=== PATIENT | female | born 1985 | race African-American/Black ===

== ENCOUNTER → 2017-12-09 09:17 | Outpatient (CLI) | payer MEDICAID, SELFPAY ==
[2017-12-09 10:29] LABS: Absolute Lymphocyte Count 1.26 X10^3/ul (0.83-4.51); Basophil# 0.02 X10^3/uL; Basophil% 0.3 % (0-1); Eosinophil# 0.01 X10^3/uL; Eosinophils% 0.1 % (0-5); Hemoglobin 12.9 g/dl (12.0-15.0); Lymphocyte # 1.26 X10^3/ul (4.0); Lymphocyte % 17.3 % (19-41); Mean Corp Hgb Conc 33.1 g/gl (32-36); Mean Corpuscular Volume 84.8 fL (81-99); Mean Platelet Vol. 11.8 fl (6.2-12.0); Monocyte# 0.96 X10^3/uL; Monocyte% 13.2 % (0-10); Neutrophil # 5.02 X10^3/uL (2.7-7.7); Neutrophil % 68.8 % (47-70); Platelet Count 262 K/mm3 (150-450); RBC Distribution Width CV 14.5 % (11.6-14.6); RBC Distribution Width SD 44.2 fl (35.1-43.9); White Blood Count 7.3 K/mm3 (4.4-11.0)
[2017-12-09 10:43] LABS: POSITIVE COUNT NO; POSITIVE DIFFERENTIAL NO; POSITIVE MORPHOLOGY NO
[2017-12-09 12:15] LABS: HIV - WCH Non-Reactive (Nonreactive); Rubella IgG 135.8 IU/mL
[2017-12-09 19:26] LABS: Chlamydia Trachomatis by PCR Negative (Negative); Neisserai gonorrhoeae by PCR Negative (Negative); Probe Check PASS; Sample Adequacy Control PASS; Specimen Processing Control PASS
[2017-12-11 03:08] LABS: HCV Quant. RNA PCR HCV Not Detected IU/mL (.)
[2017-12-11 11:45] LABS: HEPATITIS B SURFACE AG Negative (Negative); HSV 1 IgG < 0.91 index (0.00-0.90); HSV 2 IgG < 0.91 index (0.00-0.90); Hep C Antibodies <0.1 s/co ratio (0.0-0.9)
[2017-12-15 10:08] LABS: HPV APTIMA, High Risk Negative (Negative)
[2017-12-16 02:33] LABS: Rapid Plasmin Reagin (RPR) NONREACTIVE (NONREACTIVE)
== END ==
PROVIDERS: Visit Provider Obstetrics & Gynecology
DX: Z12.4 Encounter for screening for malignant neoplasm of cervix (principal); O09.90 Supervision of high risk pregnancy, unspecified, unspecified trimester
CPT/HCPCS: 80307; 85025; 86592; 86695; 86696; 86703; 86762; 86803; 86850; 86900; 87086; 87088; 87340; 87491; 87522; 87591; 88175; G0145

== ENCOUNTER 2017-12-20 07:02 | Emergency (ER) | payer MEDICAID, SELFPAY ==
[2017-12-20 07:03] VITALS: BP 148/89; PULSE 111; RESP 22; TEMP 36.3; O2SAT 100; BMI 26.2
--- NOTE | 2017-12-20 07:29 | ED.VISSUMM ---
- ER Visit Summary Date of Service: 12/20/17 Chief Complaint: Vaginal bleeding History of Present Illness: The patient is a 32 F who has had vaginal bleeding for the last 3 days. Is been intermittent. She states it is about the same quantity as spotting. She is currently 10 weeks gestation. She has seen her OB and has had an ultrasound. She was told that she had uterine fibroids. She admits to some slight cramping but denies any significant pain. She is . Physical Examination: Vital signs reviewed. HEENT exam unremarkable. Heart is regular rate and rhythm without murmurs. Lungs are clear to auscultation. Abdomen is soft and nontender. exam is deferred extremities reveal no edema. Skin exam normal. Neurologic exam normal. Test Results: [] Emergency Department Course and Treatment: I did perform a bedside ultrasound reveals a single IUP with heart rate at about 140. movement noted. HCG is over 83,000. Urinalysis reveals no infection. Patient was reassured. She feels better after the ultrasound. She will be discharged to follow-up with her OB on Tuesday Treatment Plan: [] Disposition: Discharge Impression: Threatened This note was generated with [employer] dictation software. It may contain incorrect words, spelling, and punctuation that were not noted in review of the chart prior to signing ED Disposition - Plan for ED Patient: Chief Complaint: Vag Bld, Preg Referrals: Jessica Muse MD [STAFF PHYSICIAN] -
[2017-12-20 07:56] LABS: Mucous, Urine 0 SEEN /hpf (<or=2+); Red Blood Cells-Urine 0 SEEN /hpf (0-5)
[2017-12-20 08:00] LABS: Color, Urine Yellow (Yellow); Glucose, Dipstick Normal (Normal); Ketone-Dipstick Negative (Negative); Leukocyte Esterase-Dipstick 25 /ul (Negative); Nitrite-Dipstick Negative (Negative); Occult Blood-Urine Negative /ul (Negative); Protein-Dipstick 30 mg/dl (Negative); Urine Bilirubin Dipstick Negative (Negative); Urine Clarity Sl. Cloudy (Clear); Urine Urobilinogen Normal (Normal)
[2017-12-20 08:12] LABS: Bacteria 1+ /hpf (None Seen); Squamous Epithelial Cells - UA 0-5 SEEN /hpf (5-10); White Blood Cells 0-5 SEEN /hpf (0-5)
--- NOTE | 2017-12-20 08:37 | ED.DEP ---
ED Disposition - Plan for ED Patient: Disposition: Home or Assisted Living Chief Complaint: Vag Bld, Preg Instructions: ED Miscarriage Poss Referrals: Jessica Muse MD [STAFF PHYSICIAN] -
[2017-12-20 09:18] VITALS: BP 109/58; PULSE 82; RESP 16; O2SAT 100
== END 2017-12-20 09:19 | disposition home or self-care (01) ==
PROVIDERS: Emergency Provider Emergency Medicine
DX: O20.0 Threatened abortion (principal); O34.11 Maternal care for benign tumor of corpus uteri, first trimester; O99.331 Smoking (tobacco) complicating pregnancy, first trimester; Z3A.10 10 weeks gestation of pregnancy
CPT/HCPCS: 36415; 81001; 84702; 99282

== ENCOUNTER → 2017-12-21 12:39 | Outpatient (CLI) | payer MEDICAID, SELFPAY | PROVIDERS: Visit Provider Nurse Practitioner Women's Health | DX: N89.8 Other specified noninflammatory disorders of vagina (principal) | CPT/HCPCS: 87070; 87205 ==

== ENCOUNTER → 2017-12-22 14:48 | Outpatient (CLI) | payer MEDICAID, SELFPAY ==
--- NOTE | 2017-12-22 14:55 | US_ITS ---
STUDY: FIRST TRIMESTER OBSTETRICAL ULTRASOUND REASON FOR EXAM: Female, 32 years old. . Fibroids. LMP: 10/07/2017 TECHNIQUE: Transabdominal PRIOR ULTRASOUND: None. FINDINGS: There is visualization of a single gestational sac in a normal intrauterine position. There is a visualized yolk sac. There is visualization of a live embryo. The crown-rump length (CRL) measures 4.0 cm, indicating an estimated gestational age (EGA) of 11 weeks, 0 days. There is demonstrated cardiac activity with a heart rate of 158 bpm. There is a 1.8 x 1.7 x 1.3 cm subchorionic hemorrhage adjacent to the gestational sac. The uterus measures 15.2 x 11.3 x 7.3 cm. There is an 8.8 x 6.1 x 6.1 cm fibroid in the fundus of the uterus. There is a 5.4 x 5.1 x 5.0 cm fibroid in the right side of the body of the uterus. There is a 7.2 x 7.0 x 5.6 cm fibroid posteriorly in the uterus. There is a 3.7 x 3.6 x 3.1 cm fibroid on the left body of the uterus. The cervix is closed. The right ovary is not visualized. The left ovary measures 2.3 x 1.7 x 1.5 cm.. There is no left ovarian cyst. There is no visualized left adnexal mass or complex lesion. There is no fluid in the cul de sac. US/Init OB < 14Wks US IMPRESSION: Single live intrauterine gestation at approximately 11 weeks and 0 days. 1.8 x 1.7 x 1.3 cm subchorionic hemorrhage. Fibroid uterus. Electronically Signed: Kory Quick, at 16:48 EDT Tel , Service support ,
== END ==
PROVIDERS: Visit Provider Obstetrics & Gynecology
DX: O09.90 Supervision of high risk pregnancy, unspecified, unspecified trimester (principal); O34.10 Maternal care for benign tumor of corpus uteri, unspecified trimester; D25.9 Leiomyoma of uterus, unspecified
CPT/HCPCS: 76801; 76816

== ENCOUNTER → 2018-02-06 13:43 | Outpatient (CLI) | payer MEDICAID, SELFPAY | DX: O34.10 Maternal care for benign tumor of corpus uteri, unspecified trimester (principal); D25.9 Leiomyoma of uterus, unspecified | CPT/HCPCS: 36415 ==

== ENCOUNTER → 2018-02-17 07:56 | Outpatient (CLI) | payer MEDICAID, SELFPAY ==
--- NOTE | 2018-02-17 07:59 | US_ITS ---
STUDY: SECOND AND THIRD TRIMESTER OBSTETRICAL ULTRASOUND REASON FOR EXAM: Female, 32 years old. Routine survey. LMP: October 07, 2017. TECHNIQUE: Transabdominal and Transvaginal PRIOR ULTRASOUND: Comparison is made with prior study dated January 18, 2018. FINDINGS: There is a single intrauterine fetus. The fetus is in a breech presentation. There is demonstrated cardiac activity with a heart rate of 150 bpm. There is a normal amniotic fluid volume. The largest amniotic fluid pocket measures 4.1 cm x 2.1 cm. The amniotic fluid index (DEYANIRA) is normal. The placenta is posterior in location and is not low lying. There are Grade 0 placental changes. The cervix measures 3.7 cm in length. The adnexal regions are not visualized. 4 uterine fibroids are seen. The largest measures 7.7 cm x 7.4 cm x 8.2 cm. This lies in the fundal portion of the uterus. BIOMETRY: BPD: 4.10 cm: 8 weeks, 4 days HC: 15.49 cm: 18 weeks, 4 days AC: 13.79 cm: 19 weeks, 2 days FL: 2.94 cm: 19 weeks, 1 days CI: 76% FL/BPD: 72% FL/HC: FL/AC: 21% HC/AC: 1.12 age by current US: 19 weeks, 0 days. BRENT by current US: July 14, 2018. Estimated weight: 271 grams, +/- 40 grams, 48 %. age by prior US: 18 weeks, 6 days. BRENT by prior US: July 15, 2018. Age by LMP: 19 weeks, 0 days. BRENT by LMP: July 14, 2018. ANATOMY: Gender: Female Cranium: Normal lateral ventricles. Normal choroid plexus. Normal cerebellum. Normal cisterna magna. Normal face, nose and lips. Chest: Normal 4-chamber heart. Abdomen/Pelvis: Normal diaphragm. Normal stomach. Normal abdominal wall. Normal cord insertion. Normal 3 vessel cord. Normal kidneys. Normal bladder. Spine: Normal cervical spine. Normal thoracic spine. Normal lumbar spine. Normal sacrum. Extremities: Normal bilateral upper extremities. Normal bilateral lower extremities. IMPRESSION: Single live uterine gestation with a mean gestational age of 18 weeks and 6 days. The measurements obtained today fall within normal expected range. Enlarged fibroid uterus as described. Electronically Signed: Lauri Ty MD at 13:25 EDT Tel [phone], Service support , US/OB Anatomy Scan
== END ==
PROVIDERS: Visit Provider Obstetrics & Gynecology
DX: O09.90 Supervision of high risk pregnancy, unspecified, unspecified trimester (principal); O32.1XX0 Maternal care for breech presentation, not applicable or unspecified; Z3A.18 18 weeks gestation of pregnancy
CPT/HCPCS: 76805

== ENCOUNTER → 2018-04-11 09:12 | Outpatient (CLI) | payer MEDICAID, SELFPAY ==
[2018-04-11 13:00] LABS: Absolute Lymphocyte Count 1.52 X10^3/ul (0.83-4.51); Absolute Neutrophil Count 6.5 X10^3/uL (2.0-7.7); Basophil# 0.02 X10^3/uL; Basophil% 0.2 % (0-1); Eosinophil# 0.05 X10^3/uL; Eosinophils% 0.5 % (0-5); Hematocrit 33.1 % (37-47); Hemoglobin 10.6 g/dl (12.0-15.0); Lymphocyte # 1.52 X10^3/ul (4.0); Lymphocyte % 16.4 % (19-41); Mean Corpuscular Volume 87.6 fL (81-99); Mean Platelet Vol. 12.5 fl (6.2-12.0); Monocyte# 1.08 X10^3/uL; Monocyte% 11.7 % (0-10); Neutrophil # 6.53 X10^3/uL (2.7-7.7); Neutrophil % 70.4 % (47-70); Platelet Count 226 K/mm3 (150-450); RBC Distribution Width CV 13.9 % (11.6-14.6); RBC Distribution Width SD 43.4 fl (35.1-43.9); Red Blood Count 3.78 M/mm3 (4.2-5.4); White Blood Count 9.3 K/mm3 (4.4-11.0)
[2018-04-11 13:03] LABS: POSITIVE COUNT NO; POSITIVE DIFFERENTIAL NO; POSITIVE MORPHOLOGY NO
[2018-04-11 13:27] LABS: Glucose Challenge Gest 1H 50g 85 mg/dL (70-140)
== END ==
PROVIDERS: Nurse Practitioner Women's Health; Visit Provider Obstetrics & Gynecology
DX: O09.90 Supervision of high risk pregnancy, unspecified, unspecified trimester (principal); Z3A.00 Weeks of gestation of pregnancy not specified
CPT/HCPCS: 36415; 82950; 85025

== ENCOUNTER → 2018-05-02 07:58 | Outpatient (CLI) | payer MEDICAID, SELFPAY ==
--- NOTE | 2018-05-02 08:00 | US_ITS ---
STUDY: SECOND AND THIRD TRIMESTER OBSTETRICAL ULTRASOUND - LIMITED REASON FOR EXAM: Female, 32 years old. Routine survey. LMP: October 07, 2017. PRIOR ULTRASOUND: Comparison is made with prior study dated February 17, 2018. TECHNIQUE: Transabdominal ultrasound evaluation was performed. FINDINGS: There is a single intrauterine fetus. The fetus is in a breech presentation. There is demonstrated cardiac activity with a heart rate of 149 bpm. There is a normal amniotic fluid volume. The largest amniotic fluid pocket measures 4.2 cm x 2.2 cm. The amniotic fluid index (DEYANIRA) is 11.36 cm. The placenta is posterior in location and is not low lying. There are Grade 2 placental changes. The cervix measures 3.5 cm in length. BIOMETRY: BPD: 7.44 cm: 29 weeks, 6 days HC: 27.61 cm: 30 weeks, 2 days AC: 25.35 cm: 29 weeks, 4 days FL: 5.73 cm: 30 weeks, 1 days Age by LMP: 29 weeks, 4 days. BRENT by LMP: July 14, 2018. age by prior US: 29 weeks, 4 days. BRENT by prior US: July 14, 2018. age by current US: 30 weeks, 0 days. BRENT by current US: July 11, 2018. Estimated weight: 1454 grams, +/- 212 grams, 44 percentile. Gender: Female Once again, for uterine fibroids are seen. The largest measures 7 cm x 6 cm 6.1 cm. US/OB Limited With Biometrics IMPRESSION: Single live uterine gestation with a mean gestational age of 29 weeks and 4 days. The measurements obtained today fall within normal expected range. Electronically Signed: Lauri Ty MD at 14:12 EDT Tel [phone], Service support ,
== END ==
PROVIDERS: Visit Provider Nurse Practitioner Women's Health
DX: O34.10 Maternal care for benign tumor of corpus uteri, unspecified trimester (principal); D25.9 Leiomyoma of uterus, unspecified; R10.2 Pelvic and perineal pain
CPT/HCPCS: 76816

== ENCOUNTER → 2018-05-22 12:29 | Outpatient (CLI) | payer MEDICAID, SELFPAY ==
--- NOTE | 2018-05-22 12:30 | US_ITS ---
STUDY: SECOND AND THIRD TRIMESTER OBSTETRICAL ULTRASOUND - LIMITED REASON FOR EXAM: Female, 32 years old. Routine survey. LMP: October 07, 2017. PRIOR ULTRASOUND: Comparison is made with prior study dated May 02, 2018 and February 17, 2018. TECHNIQUE: Transabdominal ultrasound evaluation was performed. FINDINGS: There is a single intrauterine fetus. The fetus is in a cephalic presentation. There is demonstrated cardiac activity with a heart rate of 124 bpm. There is a normal amniotic fluid volume. The largest amniotic fluid pocket measures 5.1 cm x 6.2 cm. The amniotic fluid index (DEYANIRA) is 11.11 cm. The placenta is fundal in location. There are Grade 2 placental changes. The cervix measures 4.3 cm in length. BIOMETRY: BPD: 8.19 cm: 33 weeks, 0 days HC: 30.28 cm: 33 weeks, 5 days AC: 28.46 cm: 32 weeks, 4 days FL: 6.35 cm: 32 weeks, 6 days Age by LMP: 32 weeks, 3 days. BRENT by LMP: July 14, 2018. age by prior US: 32 weeks, 6 days. BRENT by prior US: July 11, 2018. age by current US: 33 weeks, 1 days. BRENT by current US: July 09, 2018. Estimated weight: 2040 grams, +/- 298 grams, 50 percentile. Gender: Female Once again, 3 uterine fibroids are seen. The largest measures 7.6 cm x 5.2 cm x 7.2 cm. US/OB Limited With Biometrics IMPRESSION: Single live intrauterine gestation with mean gestational age of 32 weeks and 6 days. The measurements obtained today following the normal expected range. Uterine fibroids. Electronically Signed: Lauri Ty MD at 9:13 EDT Tel [phone], Service support ,
== END ==
PROVIDERS: Visit Provider Nurse Practitioner Women's Health
DX: O09.90 Supervision of high risk pregnancy, unspecified, unspecified trimester (principal); O34.10 Maternal care for benign tumor of corpus uteri, unspecified trimester; D25.9 Leiomyoma of uterus, unspecified
CPT/HCPCS: 76816

== ENCOUNTER → 2018-06-19 16:49 | Outpatient (CLI) | payer MEDICAID, SELFPAY ==
[2018-06-19 19:32] LABS: Group B Strep DNA By PCR Negative (Negative); Internal Control PASS; Probe Check PASS; Specimen Processing Control PASS
== END ==
PROVIDERS: Referring Provider Nurse Practitioner Women's Health; Visit Provider Nurse Practitioner Women's Health
DX: O09.90 Supervision of high risk pregnancy, unspecified, unspecified trimester (principal); Z3A.00 Weeks of gestation of pregnancy not specified
CPT/HCPCS: 87081; 87653

== ENCOUNTER → 2018-06-20 08:29 | Outpatient (CLI) | payer MEDICAID, SELFPAY ==
--- NOTE | 2018-06-20 08:31 | US_ITS ---
STUDY: SECOND AND THIRD TRIMESTER OBSTETRICAL ULTRASOUND - LIMITED REASON FOR EXAM: Female, 33 years old. Routine survey. LMP: October 07, 2017. PRIOR ULTRASOUND: Comparison is made with prior study dated May 22, 2018. TECHNIQUE: Transabdominal TECHNICAL QUALITY: Adequate. FINDINGS: There is a single intrauterine fetus. The fetus is in a cephalic presentation. There is demonstrated cardiac activity with a heart rate of 144 bpm. There is a normal amniotic fluid volume. The largest amniotic fluid pocket measures 4.0 cm x 3.8 cm. The amniotic fluid index (DEYANIRA) is 9.28 cm. The placenta is fundal in location. There are Grade 3 placental changes. The cervix measures 3.3 cm in length. BIOMETRY: BPD: 8.84 cm: 35 weeks, 6 days HC: 32.25 cm: 36 weeks, 4 days AC: 33.22 cm: 37 weeks, 1 days FL: 7.17 cm: 36 weeks, 6 days Age by LMP: 36 weeks, 4 days. BRENT by LMP: July 14, 2018. age by prior US: 37 weeks, 2 days. BRENT by prior US: July 09, 2018. age by current US: 36 weeks, 5 days. BRENT by current US: July 13, 2018. Estimated weight: 3033 grams, +/- 443 grams, 60 percentile. Gender: Female Once again, stable appearance of the uterine fibroids. US/OB Limited With Biometrics IMPRESSION: Single live intrauterine gestation with mean gestational age of 37 weeks and 2 days. Measurements obtained today fall within the normal expected range. Electronically Signed: Lauri Ty MD at 14:58 EDT Tel [phone], Service support ,
== END ==
PROVIDERS: Visit Provider Nurse Practitioner Women's Health
DX: O09.90 Supervision of high risk pregnancy, unspecified, unspecified trimester (principal); Z3A.00 Weeks of gestation of pregnancy not specified
CPT/HCPCS: 76816

== ENCOUNTER 2018-06-25 08:00 | Inpatient (IN) | payer MEDICAID, SELFPAY ==
[2018-06-25 08:24] VITALS: BMI 29.1
[2018-06-25] MEDS: Lactated Ringers 1,000 ML 50 ML IV ×3 (08:50→13:38)
[2018-06-25 09:05] LABS: ROM Internal Control Test YES-OK TO RESULT pt. (Internal QC); ROM Patient Test Negative (Negative)
[2018-06-25 09:28] LABS: Hematocrit 37.1 % (37-47); Mean Corp Hgb Conc 32.3 g/gl (32-36); Mean Corpuscular Hgb 27.8 pg (27.0-32.0); Mean Corpuscular Volume 86.1 fL (81-99); Mean Platelet Vol. 13.5 fl (6.2-12.0); Platelet Count 136 K/mm3 (150-450); RBC Distribution Width CV 14.8 % (11.6-14.6); RBC Distribution Width SD 45.1 fl (35.1-43.9); Red Blood Count 4.31 M/mm3 (4.2-5.4); White Blood Count 5.9 K/mm3 (4.4-11.0)
[2018-06-25 09:31] LABS: Scan Indicated on CBC? Y/N NO
[2018-06-25] MEDS: fentaNYL-bupivacaine (epidural) 100 ML BAG EPIDURAL (11:21)
[2018-06-25] MEDS: Oxytocin 30 units/NS 500 ml 30 UNITS/500 ML IV.SOLN IV (12:59)
--- NOTE | 2018-06-25 13:41 | HP.PCM_ITS ---
- Problem List (1) Active labor at term Status: Acute (2) Anemia affecting Status: Acute Qualifiers: (3) Pain in female pelvis Status: Acute (4) Status: Acute Qualifiers: Comment: History : 2 Elective abortions: 1 Hx Para: Spontaneous abortions: Hx # Term Pregnancies: Ectopic pregnancies: Hx # Pregnancies: Multiple births: : # of living children: (5) Abnormal ultrasonic finding on screening of mother, antepartum Status: Acute Comment: Q4wk growth US after 32 weeks (6) screening encounter Status: Acute Comment: NT done 01/10/18- normal (7) Depression affecting , antepartum Status: Acute Comment: celexa 20 mg, counseling encouraged;improved with rx (8) Uterine fibroid in Status: Acute Comment: Serial growth US. 8.8 x 6.1 x 6.1 cm fibroid in the fundus of the uterus. There is a 5.4 x 5.1 x 5.0 cm fibroid in the right side of the body of the uterus. There is a 7.2 x 7.0 x 5.6 cm fibroid posteriorly in the uterus. There is a 3.7 x 3.6 x 3.1 cm fibroid present also. (9) Tobacco use affecting in first trimester, antepartum Status: Acute Comment: No longer smoking, using Nicorette gum (10) Supervision of high risk , antepartum Status: Acute Comment: PRR BRENT 07/14/18 FOB not involved Girl:Bety History Date of Admission: 06/25/18 Final BRENT: 07/14/18 Gestational age: 37 Weeks and 2 Days History of this : This is a 33 year-old, at 37 weeks gestational age PRESENTS IAL MADE CHANGE TO 6 CM. SHE HAS had a complicated by uterine fibroids but has done well. she dneies any vb or lof admits good fm. contractions started late last night. Medical History: Medical History (Last Reviewed 06/19/18 @ 14:43 by Mei Henderson) Uterine fibroid D25.9 Allergies No Known Allergies Allergy (Verified 06/19/18 14:43) Home Medications: Home Medications citalopram 20 mg tablet 20 mg PO QDAY #30 tab 12/12/17 vitamin,calcium,iifodelz-kjhg-splwd acid tablet 1 tab PO QDAY #30 tab 02/07/18 cyclobenzaprine 5 mg tablet 5 mg PO TID PRN #60 tab 06/13/18 Smoking Status: Light Smoker (<10/day) Alcohol: None Number of Fetus(es): 1 Heart Tracin moderate vairbaility reactive no decels cat I tracing TOCO Analysis: q 4-5 History Past Pregnancies: Past PregnanciesPregancy History 2 Elective abortions 1 Hx Para Spontaneous abortions Hx # Term Pregnancies Ectopic pregnancies Hx # Pregnancies Multiple births # of living children Past Pregnancies Del. Date Name GA/Weeks Outcome Route Bth Weight Gen Labor Lgth Anesthesia Del Locatn Provider FOB Unknown elective Labs: Mom's Labs & Results 06/25/18 06/25/18 06/25/18 08:15 09:05 09:05 WBC 5.9 RBC 4.31 Hgb 12.0 Hct 37.1 MCV 86.1 MCH 27.8 MCHC 32.3 RDW 14.8 H RDW Differential 45.1 H Plt Count 136 L MPV 13.5 H Vag Amniotic Fld Detect Negative Blood Type O POSITIVE Antibody Screen NEGATIVE Course Did the patient receive Yes care? Labs Blood Type: O RH: POSITIVE RPR/VDRL/Syphilis Nonreactive Rubella status Immune HbSAg Negative Date Done: 12/09/17 Chlamydia Negative Gonorrhea Negative HIV/AIDS Non-Reactive Group B Strep: Negative Current Obstetrical History Gestational Diabetes No Incompetent Cervix No Infertility No IUGR No Macrosomia No Hypertension/Pre-eclampsia No Placenta Previa/Abruption No PTL/PROM No Uterine anomaly Yes: fibroids Oligohydramnios No Polyhydramnios No Multiple gestation No Past Medical History Asthma No Diabetes No Hypertension No Heart disease No Mitral valve prolapse No Neurologic/Seizure disorder/ No Migraines Kidney disease No Liver disease No Varicosities No Clotting disorders/Hx of DVT No Thyroid Dysfunction No Other medical diseases No Psychiatric disorders Yes: depression, anxiety Major trauma No Abnormal PAP smear No Sleep apnea No Mammogram in the last 2 years No Social History Marital Status: SINGLE Alleged father Shayan Valdez Hx Smoking Yes Smoking Status Light Smoker (<10/day) Have you had any previous no inpatient or outpatient treatment Expected Delivery Method: Spontaneous Vaginal Describe any other labor & delivery plans:: Expected Delivery Route/Plan. . Specific Issue/Plans. flu vaccine: given. tdap vaccine: given. rhogam: NA. LARC form signed: declines. labor support person: patients mom. pain management: epidural. cut cord/dad catch: []. : yes. PP control planned: mirena IUD. special requests: [] Review of Systems Constitutional: Denies: Fever, Malaise Eyes: Denies: Blurred vision, Vision Change HEENT: Denies: Head Aches, Visual Changes Cardiovascular: Denies: Chest Pain, Palpitations Respiratory: Denies: Cough, Shortness of Breath, Wheezing Gastrointestinal: Denies: Abdominal Pain, Diarrhea, Nausea, Vomiting Genitourinary: Denies: Dysuria, Hematuria Musculoskeletal: Denies: Joint Pain, Muscle pain Skin: Denies: Lesions, Rash Neurological: Denies: Blurred vision, Focal weakness, Headaches Psychiatric: Denies: Anxiety, Depression Endocrine: Denies: Heat/ Cold Intolerance Hematologic/ Lymphatic: Denies: Easy Bruising, Easy Bleeding Physical Exam General: Alert, Cooperative, No apparent distress HEENT: Atraumatic, Normocephalic. Negative for: Thyromegaly, Lymphadenopathy Cardiovascular: Regular rate Lungs: Normal air movement Abdomen: Soft, Non Tender, Gravid Neurological: Deep Tendon Reflexes 2+/4 and Symmetrical, Neuro grossly intact. Negative for: Clonus [employer]: Normal external genitalia. Negative for: Vulvar lesions Estimated gestational size: Appropriate for gestational size Presentation: Cephalic Cervix Dilation (cm): 6 Station: 0 Effacement (%): 90 Assessment/Plan All Active Problems (Last Reviewed 06/19/18 @ 14:43 by Mei Henderson) Active labor at term (Acute) Anemia affecting (Acute) Pain in female pelvis (Acute) (Acute) Abnormal ultrasonic finding on screening of mother, antepartum (Acute) screening encounter (Acute) Depression affecting , antepartum (Acute) Uterine fibroid in (Acute) Tobacco use affecting in first trimester, antepartum (Acute) Supervision of high risk , antepartum (Acute) Bleeding in early (Resolved) This is a 33 year-old, at 37 weeks gestational age presents IAL Patient presents IAL, plan expectant management for , pitocin PRN, arom clear fluid. Pain management: plans epidural. GBS negative. Management of any complications: fibroids I have reviewed the [facility] and made any clinically relevant updates.
[2018-06-25] MEDS: Oxytocin 30 units/NS 500 ml 30 UNITS/500 ML IV.SOLN 334 UNITS IV (15:10)
--- NOTE | 2018-06-25 15:19 | PCM.OB.VAG ---
- Problem List (1) Active labor at term Status: Acute (2) Anemia affecting Status: Acute Qualifiers: (3) Pain in female pelvis Status: Acute (4) Status: Acute Qualifiers: Comment: History : 2 Elective abortions: 1 Hx Para: Spontaneous abortions: Hx # Term Pregnancies: Ectopic pregnancies: Hx # Pregnancies: Multiple births: : # of living children: (5) Abnormal ultrasonic finding on screening of mother, antepartum Status: Acute Comment: Q4wk growth US after 32 weeks (6) screening encounter Status: Acute Comment: NT done 01/10/18- normal (7) Depression affecting , antepartum Status: Acute Comment: celexa 20 mg, counseling encouraged;improved with rx (8) Uterine fibroid in Status: Acute Comment: Serial growth US. 8.8 x 6.1 x 6.1 cm fibroid in the fundus of the uterus. There is a 5.4 x 5.1 x 5.0 cm fibroid in the right side of the body of the uterus. There is a 7.2 x 7.0 x 5.6 cm fibroid posteriorly in the uterus. There is a 3.7 x 3.6 x 3.1 cm fibroid present also. (9) Tobacco use affecting in first trimester, antepartum Status: Acute Comment: No longer smoking, using Nicorette gum (10) Supervision of high risk , antepartum Status: Acute Comment: PRR BRENT 07/14/18 FOB not involved Girl:Korah Vaginal Delivery Maternal Presentation: Active Labor 33-year-old at 37 weeks 2 days presents in active labor Amniotic Membrane Rupture Type: Artificial Amniotic Fluid Description: Clear Final BRENT: 07/14/18 Gestational age: 37 Weeks and 2 Days Date of Procedure: 06/25/18 Pre-Operative Diagnosis: In active labor, category 2 tracing with recurrent variable decelerations w Post-Operative Diagnosis: Same Surgery/ Procedure Performed: Vacuum Assisted Vaginal Delivery Type of Anesthesia: Epidural Description of Procedure: Patient began pushing and developed recurrent severe variable decelerations into the 60s. It was felt like there would be at least 45-60 minutes of pushing for spontaneous delivery and therefore the decision to perform an operative vaginal delivery to shorten the second stage of labor and reduce stress. Risks were discussed with the patient and the decision for a vacuum delivery was decided upon. was noted to be HIREN and the +3 station when the vacuum was applied and pulls with 2 contractions with no pop offs were done with the pressure in the green zone and after spontaneous rotation upon expulsion she delivered the head in the ACACIA presentation. The head was delivered atraumatically. The anterior and posterior shoulders delivered without complication followed by the rest of the and the was placed on the maternal abdomen. Delayed cord clamping was employed for approximately 60 seconds. Cord was clamped and cut and gentle traction was applied to the cord and the placenta delivered spontaneously immediately following it was noted to be intact with three-vessel cord. The perineum and vagina were inspected and noted to have no laceration. EBL was 200 cc. Patient and infant tolerated delivery well. Presentation: ACACIA Placental Delivery Description: Spontaneous Placenta Disposition: [facility] Cord Vessel Description: 3 Vessels Cord Entanglement: None Episiotomy Description: None Laceration: None Medications given after delivery: IV Pitocin Complications: None
[2018-06-25] MEDS: Oxytocin 30 units/NS 500 ml 30 UNITS/500 ML IV.SOLN 167 UNITS IV (15:40)
[2018-06-25 20:35] VITALS: BP 121/83; PULSE 105; RESP 18; TEMP 36.6; O2SAT 98
[2018-06-25] MEDS: Naproxen 250 MG Tablet PO (21:21)
[2018-06-25] MEDS: 0.9% Saline Lock 10 ML Syringe IV (21:22)
[2018-06-26 00:31] VITALS: BP 140/88; PULSE 83; RESP 18; TEMP 36.8
[2018-06-26 04:05] VITALS: BP 111/69; PULSE 89; RESP 16; TEMP 36.4
--- NOTE | 2018-06-26 07:57 | PCM.PN.OB ---
Patient Problems: Active and Suspected Problems (Last Reviewed 06/19/18 @ 14:43 by Mei Henderson) Active labor at term (Acute) Subjective: Doing well. No SOB, VB. - Physical Exam General: Alert, Oriented x3 Abdomen: Soft, Non Tender, - - FF but difficult to assess due to large uterine fibroid. Minimal vaginal bleeding on pad Vital Signs Temp Pulse Resp BP Pulse Ox 97.6 F L 89 16 111/69 98 06/26/18 04:05 06/26/18 04:05 06/26/18 04:05 06/26/18 04:05 06/25/18 20:35 Oxygen Delivery Method Room Air Weight: 186 lb 1.122 oz Body Mass Index (BMI) 29.1 Intake and Output for Last 24 Hours 06/25/18 06/25/18 06/26/18 00:59 23:59 23:59 Intake Total Output Total 400 / 400 Balance -400 / -400 Laboratory Tests Past 24 Hrs 06/25/18 06/25/18 06/25/18 08:15 09:05 09:05 WBC 5.9 RBC 4.31 Hgb 12.0 Hct 37.1 MCV 86.1 MCH 27.8 MCHC 32.3 RDW 14.8 H RDW Differential 45.1 H Plt Count 136 L MPV 13.5 H Vag Amniotic Fld Detect Negative Blood Type O POSITIVE Antibody Screen NEGATIVE Medical Necessity - Tobacco Use Smoking Status: Light Smoker (<10/day) Assessment/Plan All Active Problems (Last Reviewed 06/19/18 @ 14:43 by Mei Henderson) Active labor at term (Acute) Anemia affecting (Acute) Pain in female pelvis (Acute) (Acute) Abnormal ultrasonic finding on screening of mother, antepartum (Acute) screening encounter (Acute) Depression affecting , antepartum (Acute) Uterine fibroid in (Acute) Tobacco use affecting in first trimester, antepartum (Acute) Supervision of high risk , antepartum (Acute) Bleeding in early (Resolved) VAVD PPD#1: Routine care. . Pain controlled
[2018-06-26] MEDS: Naproxen 250 MG Tablet PO (08:45)
[2018-06-26 08:46] VITALS: BP 113/67; PULSE 87; RESP 16; TEMP 37; O2SAT 99
--- NOTE | 2018-06-26 10:25 | CASEMGMT ---
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 ANGI was alert and oriented x4, no visitors present during assessment. Living Arrangements: ANGI reports to live independently in an apartment. She has family that lives locally. FOB does not live within the state and presently is not involved. Education: ANGI completed her GED, and attended some college courses. Is able to read and write and denies comprehension issues. Financial: ANGI works and intends on taking 12 weeks off, while collecting short-term disability through her employer. She will be seeking daycare option for her return to work. States that financially it is tight, but that she is able to make ends meet with public assistance. Supplies: Reports to have crib, car seat, bouncer, clothing, diapers, bottles. She does not have a pump at this time. Intends on breast feeding. Inform that the integration consultant can aid in getting a pump, or she can also go through [facility]. Understanding expressed. No further supply needs indicated at this time. Transportation: ANGI has access to transportation and is able to drive. Denies concerns with transportation at this time. Mental Health Hx: ANGI states that she was diagnosed with anxiety and depression at the beginning of her . Reports that Dr. Juan placed her on Celexa at that time and it has managed her symptoms well. Denies any symptoms of anxiety/depression currently. States that she is excited and anxious to get home. Educated to PPD and provided information to review and take home. Understanding expressed. Substance Use Hx: ANGI has light hx of smoking tobacco. Denies other substance use. No concerns presented throughout . Resource/Agency Involvement: [facility], [employer] ([employer] [place] & Medicaid) ASSESSMENT: ANGI presents with pleasant affect as evidenced by smiling and willingness to participate in assessment. Reports to live alone and intends on returning there with infant at discharge. She has family that lives locally and whom she identifies as supports. All necessary supplies have been obtained. She knows to setup an appointment with [facility] this week. She intends on establishing the infant with Dr. 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 Reports to have that number and will setup an appointment JAYLA. She does have access to transportation of make it to the appointment. MOB does not have a PCP herself. Provided with a list of physicians locally that accept her insurance. Educated to PPD, [facility], and community resources. MOB accepted information, but declines [facility] referral at this time. Denies further questions or needs. PLAN: MOB to return home with at discharge with support of family. Rina Chan, MANAGER FINE DINING, HIDE WORKER
[2018-06-26] MEDS: Prenatal Vits Tablet 1 TABLET PO (11:14)
[2018-06-26] MEDS: Citalopram 20 MG Tablet PO (11:14)
--- NOTE | 2018-06-26 13:02 | PCM.DCVAG ---
Discharge Diet: No Restrictions Discharge Activity: Return to Normal Activity, May not drive while taking narcotic pain medications., May Shower May resume sexual activity in: 4-6 weeks Call your doctor if your incision/area has: Continuous Slow Oozing, Sudden Increased Bleeding, Increased Pain/ Swelling, Increased Redness, Foul Smelling Discharge Additional Instructions: If you experience any of the following, contact your healthcare provider. Bleeding that soaks a pad every hour for 2 hours Fever 100.4 or higher Unrelieved incision or abdominal pain Swelling, redness, discharge or bleeding from your incision or episiotomy site Your incision begins to separate Problems urinating (including inability to urinate or burning while urinating). Visual changes Severe headache Flu-like symptoms Pain or redness in one of both of your breasts Pain, warmth, tenderness or swelling in your legs, especially the calf area Frequent nausea and vomiting Symptoms of depression or anxiety If you experience any of the following, call 911 or go to the nearest Emergency Room. Chest pain Problems breathing Seizure activity Partial or complete paralysis of a body part, slurred speech, weakness or drooping of the face, or a sudden inability to walk or hold your balance Allergies/Adverse Reactions: Allergies No Known Allergies Allergy (Verified 06/19/18 14:43) Medications to take at Discharge citalopram 20 mg tablet 20 mg PO QDAY #30 tab 12/12/17 vitamin,calcium,ayuczsne-qrfn-hdsyl acid tablet 1 tab PO QDAY #30 tab 02/07/18 cyclobenzaprine 5 mg tablet 5 mg PO TID PRN #60 tab 06/13/18 Please Follow Up With: Jessica Muse MD - [phone] When: Call to make an appointment with your doctor in 6 weeks. If you had elevated Blood pressure or 4th degree laceration you will need to be seen in 2 weeks. Primary Care Physician: Care Physician,No Primary [Primary Care Provider] - Test Results: Test results from this visit will be discussed in further detail at your follow-up appointment, if applicable.
--- NOTE | 2018-06-26 13:03 | DCINST_ITS ---
Discharge Diet: No Restrictions Discharge Activity: Return to Normal Activity, May not drive while taking narcotic pain medications., May Shower May resume sexual activity in: 4-6 weeks Call your doctor if your incision/area has: Continuous Slow Oozing, Sudden Increased Bleeding, Increased Pain/ Swelling, Increased Redness, Foul Smelling Discharge Additional Instructions: If you experience any of the following, contact your healthcare provider. * Bleeding that soaks a pad every hour for 2 hours * Fever 100.4 or higher * Unrelieved incision or abdominal pain * Swelling, redness, discharge or bleeding from your incision or episiotomy site * Your incision begins to separate * Problems urinating (including inability to urinate or burning while urinating). * Visual changes * Severe headache * Flu-like symptoms * Pain or redness in one of both of your breasts * Pain, warmth, tenderness or swelling in your legs, especially the calf area * Frequent nausea and vomiting * Symptoms of depression or anxiety If you experience any of the following, call 911 or go to the nearest Emergency Room. * Chest pain * Problems breathing * Seizure activity * Partial or complete paralysis of a body part, slurred speech, weakness or drooping of the face, or a sudden inability to walk or hold your balance Allergies/Adverse Reactions: Allergies No Known Allergies Allergy (Verified 06/19/18 14:43) Medications to take at Discharge citalopram 20 mg tablet 20 mg PO QDAY #30 tab 12/12/17 vitamin,calcium,nracyqzf-yfqe-lcvmy acid tablet 1 tab PO QDAY #30 tab 02/07/18 cyclobenzaprine 5 mg tablet 5 mg PO TID PRN #60 tab 06/13/18 Please Follow Up With: Jessica Muse MD - [phone] When: Call to make an appointment with your doctor in 6 weeks. If you had elevated Blood pressure or 4th degree laceration you will need to be seen in 2 weeks. Primary Care Physician: Care Physician,No Primary [Primary Care Provider] - Test Results: Test results from this visit will be discussed in further detail at your follow- up appointment, if applicable.
[2018-06-26 14:30] VITALS: BP 126/84; PULSE 87; RESP 16; TEMP 36.6; O2SAT 97
== END 2018-06-26 14:55 | disposition home or self-care (01) | DRG 560 ==
PROVIDERS: Admitting Provider Obstetrics & Gynecology; Visit Provider Obstetrics & Gynecology
DX: O99.02 Anemia complicating childbirth (principal); D64.9 Anemia, unspecified; O76 Abnormality in fetal heart rate and rhythm complicating labor and delivery; O34.13 Maternal care for benign tumor of corpus uteri, third trimester; D25.9 Leiomyoma of uterus, unspecified; O99.344 Other mental disorders complicating childbirth; F32.9 Major depressive disorder, single episode, unspecified; F41.9 Anxiety disorder, unspecified; O99.334 Smoking (tobacco) complicating childbirth; Z79.899 Other long term (current) drug therapy; Z3A.37 37 weeks gestation of pregnancy; Z37.0 Single live birth
CPT/HCPCS: 59025; 59050; 84112; 85027; 86850; 86900; 99218; J7120; A4216; G0378

== ENCOUNTER 2019-01-10 20:14 | Emergency (ER) | payer MEDICAID, SELFPAY ==
[2018-12-06 07:27] VITALS: BMI 26.9
[2019-01-10 20:15] VITALS: BP 146/88; PULSE 88; RESP 16; TEMP 37.4; O2SAT 96; BMI 28.0
[2019-01-10 21:09] LABS: Color, Urine Yellow (Yellow); Glucose, Dipstick Normal (Normal); Ketone-Dipstick Negative (Negative); Leukocyte Esterase-Dipstick 25 /ul (Negative); Nitrite-Dipstick Negative (Negative); Occult Blood-Urine Negative /ul (Negative); Protein-Dipstick Negative (Negative); Urine Bilirubin Dipstick Negative (Negative); Urine Clarity Clear (Clear); Urine Urobilinogen 1 mg/dl (Normal); Urine pH 6.5 (5.0 - 8.0)
[2019-01-10 21:26] LABS: Bacteria RARE /hpf (None Seen); Mucous, Urine 1+ /hpf (<or=2+); Red Blood Cells-Urine 0-5 SEEN /hpf (0-5); Squamous Epithelial Cells - UA 0-5 SEEN /hpf (5-10); White Blood Cells 0-5 SEEN /hpf (0-5)
--- NOTE | 2019-01-10 21:38 | US_ITS ---
STUDY: ULTRASOUND OF THE FEMALE PELVIS - COMPLETE REASON FOR EXAM: Female, 33 years old. Right lower quadrant pain x8 hours LMP: TECHNIQUE: Transvaginal TECHNICAL QUALITY: Adequate. COMPARISON: None. FINDINGS: The uterus is anteverted and is in a midline position. The uterus measures 9.6 x 7.3 x 6.0 cm. There is a Nabothian cyst of the cervix. The endometrium measures 5 mm in thickness, and is hyperechoic. There is no demonstrated endometrial mass. There are 4 uterine fibroids measuring 4.9 x 3.8 x 3.6 cm, 4.6 x 4.9 x 4.1 cm, 2.8 x 2.0 x 2.0 cm, and 5.2 x 4.7 x 4.0 cm. I.U.D. - The patient does have an I.U.D. the IUD does not appear to be in a midline location. The IUD appears transverse and to the left of midline. The right ovary is visualized. The right ovary measures 2.4 x 1.8 x 1.6 cm. There is a 1.6 x 1.3 x 1.1 cm right ovarian cyst. There is no visualized right adnexal mass or complex lesion. There is normal arterial and normal venous vascularity. The left ovary is visualized. The left ovary measures 2.5 x 2.4 x 2.3 cm. There is no left ovarian cyst or ovarian mass. There is no visualized left adnexal mass or complex lesion. There is normal arterial and normal venous vascularity. There is a moderate amount of fluid in the cul-de-sac. Polycystic ovary disease: No. US/Transvaginal Non- IMPRESSION: Multiple uterine fibroids as detailed above. An IUD is present which is not in a midline position and appears in transverse lie and to the left of midline. There is a moderate amount of fluid in the cul-de-sac. There is a cervical nabothian cyst. There is a right ovarian cyst measuring 1.6 x 1.3 x 1.1 cm. If IUD uterine perforation is clinically suspected, CT of the pelvis is recommended for further evaluation. Electronically Signed: Carlos Gray MD at 22:59 EDT , Service support ,
--- NOTE | 2019-01-10 21:39 | CT_ITS ---
STUDY: CT ABDOMEN AND PELVIS WITH CONTRAST REASON FOR EXAM: Female, 33 years old. Right lower quadrant pain since noon today. RADIATION DOSAGE (If Supplied By Facility): CTDIvol = ( 17.34 ) mGy, DLP = ( 786.18 ) mGycm TECHNIQUE: Transaxial images were obtained from the dome of the diaphragm to the symphysis pubis with oral contrast. 100ML IV/Oral Isovue 300 was administered. Sagittal and coronal images were reconstructed. Individualized dose optimization techniques were used for this CT. COMPARISON: Pelvic ultrasound 01/10/2019. FINDINGS: The visualized lung bases are unremarkable. The visualized portions of the heart are within normal limits. Normal liver. Normal gallbladder and extrahepatic biliary system. Normal spleen. Normal pancreas. Normal bilateral adrenal glands. Normal right kidney. Normal left kidney. Normal visualized stomach. Normal small intestine. Normal colon. The appendix is visualized on axial images 83-90 and it appears normal.. Normal abdominal aorta. Normal inferior vena cava. Normal retroperitoneum. Normal urinary bladder. The gallbladder is markedly enlarged and irregular in contour, containing numerous calcified and noncalcified leiomyomas. Large pedunculated leiomyomas are seen arising from the right posterolateral and midline posterior khalil of the gallbladder, measuring 5 cm and 6 cm respectively. A 1.6 cm right ovarian cyst was noted on ultrasound but is not readily visualized in this study. It may be obscured by the larger adjacent leiomyomas. There is an IUD in uterus which is largely outside the endometrial canal with arms embedded in the posterior and left lateral uterine wall. Best appreciated on coronal images 49-50, left arm of the IUD approaches the surface of the uterus but does not visibly protrude through serosa. There is a small umbilical hernia which contains fat, but no bowel. There are mild degenerative changes of the visualized lumbar spine. CT/Abdomen/Pelvis WITH Contrast IMPRESSION: IUD is embedded in the posterior and left lateral wall of the uterus, but does not protrude through the uterine surface. Markedly heterogeneous leiomyomatous uterus with several large pedunculated leiomyomas. No evidence for acute pathology. No evidence for appendicitis or diverticulitis. No demonstrated urinary calculi or hydronephrosis. Electronically Signed: Michael Julio MD at 0:41 EDT , Service support ,
[2019-01-10 21:40] LABS: Absolute Lymphocyte Count 2.98 X10^3/ul (0.83-4.51); Basophil# 0.03 X10^3/uL; Basophil% 0.4 % (0-1); Eosinophil# 0.27 X10^3/uL; Eosinophils% 3.4 % (0-5); Hematocrit 41.6 % (37-47); Hemoglobin 13.3 g/dl (12.0-15.0); Lymphocyte # 2.98 X10^3/ul (4.0); Lymphocyte % 37.6 % (19-41); Mean Corpuscular Volume 84.6 fL (81-99); Mean Platelet Vol. 11.5 fl (6.2-12.0); Monocyte# 0.62 X10^3/uL; Monocyte% 7.8 % (0-10); Neutrophil # 4.01 X10^3/uL (2.7-7.7); Neutrophil % 50.7 % (47-70); Platelet Count 296 K/mm3 (150-450); RBC Distribution Width CV 14.7 % (11.6-14.6); RBC Distribution Width SD 45.4 fl (35.1-43.9); Red Blood Count 4.92 M/mm3 (4.2-5.4); White Blood Count 7.9 K/mm3 (4.4-11.0)
--- NOTE | 2019-01-10 21:40 | ED.VISSUMM ---
- ER Visit Summary Date of Service: 01/10/19 Chief Complaint: Abdominal pain History of Present Illness: The patient is a 33 F presenting with abdominal pain. She states this started earlier today. Pain is in the right lower quadrant. She has had decreased appetite. She denies nausea, vomiting, diarrhea. Denies urinary complaints. She states that she has fibroids and has had similar pain in the past. Denies fever. Denies other complaints. Physical Examination: Vitals are stable. Patient is afebrile. Alert no acute distress. HEENT exam is unremarkable. Neck is supple. Lungs are clear and equal bilaterally. Heart is regular rate and rhythm. Abdomen is soft right lower quadrant tenderness with no rebound or guarding Extremities are unremarkable. Skin is warm and dry. Remainder of exam is unremarkable. Emergency Department Course and Treatment: Patient was given morphine, Zofran IV. CBC, chemistries unremarkable. Urinalysis unremarkable. hCG negative. Ultrasound of the pelvis shows multiple uterine fibroids. An IUD is present which is not in a midline position and appears in transverse lie and to the left of midline. There is a moderate amount of fluid in the cul-de-sac. There is a cervical nabothian cyst. There is a right ovarian cyst measuring 1.6 x 1.3 x 1.1 cm. If IUD uterine perforation is clinically suspected, CT of the pelvis is recommended for further evaluation. CT abdomen pelvis shows IUD is embedded in the posterior and left lateral wall of the uterus, but does not protrude through the uterine surface. Markedly heterogeneous leiomyomatous uterus with several large pedunculated leiomyomas. No evidence for acute pathology. No evidence for appendicitis or diverticulitis. No demonstrated urinary calculi or hydronephrosis. On reevaluation, patient is resting comfortably. Discussed with Dr. Juan and she will see her in the office. Advised to return to ED if worsening complaints. Disposition: Discharge home Impression: Abdominal pain, fibroids This note was generated with [employer] dictation software. It may contain incorrect words, spelling, and punctuation that were not noted in review of the chart prior to signing ED Disposition - Plan for ED Patient: Referrals: Care Physician,No Primary [Primary Care Provider] -
[2019-01-10 21:41] LABS: POSITIVE COUNT NO; POSITIVE DIFFERENTIAL NO; POSITIVE MORPHOLOGY NO
[2019-01-10] MEDS: Morphine 4 MG/ML Syringe IV (21:52)
[2019-01-10] MEDS: Ondansetron 4 MG/2 ML Vial IV (21:52)
[2019-01-10 21:54] LABS: Anion Gap 4 (5-15); BUN 9 mg/dL (7-18); BUN/Creat Ratio 10.4 RATIO (10-20); Calcium,Total 8.7 mg/dL (8.5-10.1); Chloride 108 mmol/L (98-107); Creatinine, Serum 0.86 mg/dL (0.55-1.02); EST Glomerular Filtration Rate 80 mL/min (>60); Est Glom Filt Rate - Afr Amer 97 mL/min (>60); Estimated Creatinine Clearance 89.63 ml/min; Glucose 83 mg/dL (74-106); Potassium 3.7 mmol/L (3.5-5.1); Sodium Level 143 mmol/L (136-145)
[2019-01-10 22:15] LABS: Internal QC Validated? YES +Cl - CLEAR BKGD; Pregnancy, Serum, hCG Quali. NEGATIVE Negative
[2019-01-10 22:42] VITALS: BP 154/92; PULSE 82; RESP 14; O2SAT 99
[2019-01-11 00:32] VITALS: BP 145/98; PULSE 64; RESP 18; TEMP 36.7; O2SAT 97
--- NOTE | 2019-01-11 00:52 | ED.DEP ---
ED Disposition - Plan for ED Patient: Instructions: ED Fibroids Prescriptions: Naproxen [Naprosyn] 500 mg PO BID PRN #20 tablet Referrals: Jessica Muse MD [STAFF PHYSICIAN] -
[2019-01-11] MEDS: Morphine 2 MG/ML Syringe IV (01:14)
[2019-01-11 01:37] VITALS: BP 134/78; PULSE 64; RESP 14; O2SAT 98
--- NOTE | 2019-01-11 01:37 | ED.RN ---
PT GIVEN WRITTEN AND VERBAL DISCHARGE INSTRUCTIONS AND HOME GOING PRESCRIPTIONS PT EDUCATED NOT TO DRIVE FOR 6 HOURS AFTER HAVING MORPHINE. PT VERBALIZES UNDERSTANDING AND DENIES ANY FURTHER QUESTIONS. PT DRESSES SELF AND AMBULATES OUT OF DEPT WITH FAMILY.
== END 2019-01-11 01:42 | disposition home or self-care (01) ==
PROVIDERS: Emergency Provider Emergency Medicine
DX: R10.9 Unspecified abdominal pain (principal); R10.2 Pelvic and perineal pain; D25.9 Leiomyoma of uterus, unspecified; N88.8 Other specified noninflammatory disorders of cervix uteri; N83.201 Unspecified ovarian cyst, right side; Z72.0 Tobacco use; Z79.899 Other long term (current) drug therapy; Z97.5 Presence of (intrauterine) contraceptive device
CPT/HCPCS: 74177; 76830; 80048; 81001; 84703; 85025; 93976; 96374; 96375; 96376; 99284; Q9967; A4216; J2405

== ENCOUNTER → 2019-02-08 18:27 | Outpatient (CLI) | payer MEDICAID, SELFPAY ==
[2019-01-24 10:49] VITALS: BMI 27.6
--- NOTE | 2019-02-08 18:32 | US_ITS ---
STUDY: ULTRASOUND OF THE FEMALE PELVIS - COMPLETE REASON FOR EXAM: Female, 33 years old. Fibroid uterus. LMP: January 24, 2019 TECHNIQUE: Transabdominal and Transvaginal TECHNICAL QUALITY: Adequate. COMPARISON: January 10, [address] FINDINGS: The uterus is anteverted and is in a midline position. The uterus measures 10.0 x 8.2 x 5.0 cm. Normal uterine cervix. The endometrium measures 7 mm in thickness, and is hyperechoic. There is no demonstrated endometrial mass. There are multiple masses consistent with fibroids. Largest is pedunculated on the right measuring 5.3 cm. Additional right-sided lesion measuring 4.8 and 4.5 cm are present with 2.7 cm fundal and 2.2 cm midline masses. There echogenic regions consistent with calcification. I.U.D. - The patient does have an I.U.D. in The right ovary is visualized. The right ovary measures 3.5 x 1.9 x 1.7 cm. There is 1.6 cm cyst . There is no visualized right adnexal mass or complex lesion. There is normal arterial and normal venous vascularity. The left ovary is visualized. The left ovary measures 2.2 x 1.8 x 1.2 cm. There is no left ovarian cyst or ovarian mass. There is no visualized left adnexal mass or complex lesion. There is normal arterial and normal venous vascularity. There is no fluid in the cul-de-sac. The visualized bladder is unremarkable. US/Transvaginal Non- IMPRESSION: Fibroid uterus. Electronically Signed: Bob Ospina MD at 11:45 EDT , Service support ,
--- NOTE | 2019-02-08 18:32 | US_ITS ---
STUDY: ULTRASOUND OF THE FEMALE PELVIS - COMPLETE REASON FOR EXAM: Female, 33 years old. Fibroid uterus. LMP: January 24, 2019 TECHNIQUE: Transabdominal and Transvaginal TECHNICAL QUALITY: Adequate. COMPARISON: January 10, [address] FINDINGS: The uterus is anteverted and is in a midline position. The uterus measures 10.0 x 8.2 x 5.0 cm. Normal uterine cervix. The endometrium measures 7 mm in thickness, and is hyperechoic. There is no demonstrated endometrial mass. There are multiple masses consistent with fibroids. Largest is pedunculated on the right measuring 5.3 cm. Additional right-sided lesion measuring 4.8 and 4.5 cm are present with 2.7 cm fundal and 2.2 cm midline masses. There echogenic regions consistent with calcification. I.U.D. - The patient does have an I.U.D. in The right ovary is visualized. The right ovary measures 3.5 x 1.9 x 1.7 cm. There is 1.6 cm cyst . There is no visualized right adnexal mass or complex lesion. There is normal arterial and normal venous vascularity. The left ovary is visualized. The left ovary measures 2.2 x 1.8 x 1.2 cm. There is no left ovarian cyst or ovarian mass. There is no visualized left adnexal mass or complex lesion. There is normal arterial and normal venous vascularity. There is no fluid in the cul-de-sac. The visualized bladder is unremarkable. US/Pelvic (Non ) IMPRESSION: Fibroid uterus. Electronically Signed: Bob Ospina MD at 11:45 EDT , Service support ,
== END ==
PROVIDERS: Referring Provider Obstetrics & Gynecology; Visit Provider Obstetrics & Gynecology
DX: D25.9 Leiomyoma of uterus, unspecified (principal)
CPT/HCPCS: 76830; 76856; 93976

== ENCOUNTER 2019-04-19 05:24 | Inpatient (IN) | payer MEDICAID, SELFPAY ==
[2019-01-24 10:49] VITALS: BMI 27.6
[2019-04-04 11:45] VITALS: BMI 27.6
--- NOTE | 2019-04-15 21:35 | HP.PCM_ITS ---
- Problem List (1) Uterine leiomyoma Status: Acute Qualifiers: Comment: laparotomy with myomectomies. nexplanon insertion at surgery. History and Physical [facility] 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 Is patient in pain?: No Allergies No Known Allergies Allergy (Verified 04/12/19 09:52) Medications naproxen 500 mg tablet 500 mg PO PRN PRN 02/07/19 [History Confirmed 04/12/19] oxycodone-acetaminophen 5 mg-325 mg tablet 1 tab PO Q4H PRN #20 tab 02/07/19 [Rx Confirmed 04/12/19] Citalopram Hydrobromide [Citalopram HBr] 20 mg PO QDAY 04/12/19 [History Confirmed 04/12/19] Is last menstrual period known: Yes Last Menstral Period: 03/23/19 Post menopausal: No Patient : No : No PFSH Medical History Uterine fibroid (Acute) Family History Grandmother Diabetes Grandfather Diabetes Social History (Updated 04/13/19 @ 06:34 by Jessica Muse MD) Smoking Status: Current every day smoker alcohol intake: current details: occasionally but not at this point substance use type: does not use caffeine: Yes what type of physical activity do you participate in: none seatbelt use: always do you feel safe at home: Yes additional social history: Single- 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 Patient has a significantly enlarged uterus with multiple fibroids and heavy abnormal bleeding. Patient wants to maintain fertility and therefore she is going to proceed with myomectomies. Was discussed and offered with the patient laparoscopic removal with a different provider at an outside institution and patient declined. Female Reproductive History Last Menstral Period: 03/23/19 Menopausal Symptoms: No night sweats Pregancy History 2 Elective abortions 1 Hx Para 1 Spontaneous abortions Hx # Term Pregnancies Ectopic pregnancies Hx # Pregnancies Multiple births # of living children Past Pregnancies Del. Date Name GA/Weeks Outcome Route Bth Weight Gen Labor Lgth Anesthesia Del Locatn Provider FOB Unknown elective Unknown 2017 [facility] live - full term SM ROS Const Constitutional: Denies fatigue, night sweats, weight gain or weight loss ENT ENT: Reports system reviewed and no additional complaints, except as docu Cardio Card: Denies chest pain Resp Resp: Denies cough or dyspnea GI GI: Reports as per HPI; denies abdominal pain, constipation, nausea or vomiting : Denies nipple discharge, urinary frequency, urinary incontinence, urinary hesitancy, urinary urgency, vaginal discharge, vaginal dryness, vaginal odor or vaginal itching Musc Musc: Denies joint pain, back pain or muscle weakness Skin Skin/Breast: Denies hair loss, change in hair, dry skin, breast lump, breast pain, breast skin changes or nipple discharge Neuro Neuro: Reports system reviewed and no additional complaints, except as docu Psych Psych: Reports system reviewed and no additional complaints, except as docu Endo Endo: Denies cold intolerance, excessive sweating, heat intolerance or increased thirst Aayush/Lymph Hematologic/Lymphatic: Denies easy bleeding, Denies easy bruising, Denies enlarged lymph nodes Exam Const General: cooperative, healthy appearing, comfortable, acute distress Nutritional Appearance: average body habitus Orientation: alert HENMT Head: normal to inspection, normocephalic Neck Neck: normal visual inspection, trachea midline Thyroid: thyroid normal Resp Effort & Inspection: normal respiratory effort GI Inspection: normal to inspection Palpation: soft, other (enlarged uterus with multiple leiomyomas) General: bladder normal to palpation External Female Exam: normal external appearance, normal appearance of the urethra Urethra: normal appearance of the urethra, normal palpation, no discharge Speculum Exam - Vagina: normal appearance of the vagina, normal vaginal discharge Speculum Exam - Cervix: normal appearance of the cervix, nontender Bimanual Exam- Vagina & Uterus: normal bimanual exam, uterine size normal, bladder normal to palpation, uterine shape normal, No cervical tenderness, uterine mobility normal, uterine consistency normal, normal cervical palpation, uterus non-tender Bimanual Exam- Adnexa, other: normal adnexae, adnexae mobile, no adnexal masses, pelvic support normal Pelvic Support: normal Skin General: no rashes or lesions noted Assessment & Plan Problems 1. Intramural and subserous leiomyoma of uterus D25.1; D25.2 laparotomy with myomectomies. nexplanon insertion at surgery. Plan Discussed medical and surgical options with the patient and the patient wishes to proceed with laparotomy and myomectomies and Nexplanon insertion for contraception. discussed surgical risks including risks of anesthesia, infection, bleeding, injury to bowel, bladder or blood vessels, and patient wishes to proceed with surgery. Medications Discontinued: citalopram (Celexa) Discontinued Reason: Order edited - Discontinuing original order 20 mg PO QDAY 90 tabs 3RF Coding Level of Care Code No Charge Diagnoses Intramural and subserous leiomyoma of uterus D25.1; D25.2 ??Uterine leiomyoma location: intramural and subserous 04/13/19 0635 <Electronically signed by Jessica steele MD> Date _ Jessica Muse MD Cosigner Signature: Date (if applicable) CC: Jessica Muse MD ~ \UPDATE- I have seen the patient and performed any clinically relevant updates to the history and physical exam. Jessica Muse MD
[2019-04-19] VITALS (15 sets, daily range): BP systolic 96–119; BP diastolic 63–81; PULSE 67–94; RESP 10–18; TEMP 36.2–37.2; O2SAT 64–100; BMI 27.1
--- NOTE | 2019-04-19 | UTER_PTH ---
PATIENT: YOVANY BYRNES LOC: MS3 U#:[id number] AGE/SX: 33/F ROOM: MS309 RE04/19/[address]: Dr. Jessica Muse MD : [id number] BED: 1 DIS: 04/21/2019 SPEC #: [id number] RECD: 04/19/19 12:03 STATUS: HUGO DIXON #: [id number] PRISCILLA: 04/19/19 00:[address]: Jessica Muse DEPT: SURGICAL PATHOLOGY RECD BY: Rajiv Hudson ENTERED: 04/19/19 12:03 SP TYPE: UTERINE CO OTHR DR: No Primary Care Phys Tissues: MYOMA Procedures: Surgery Specimen Level V HEADER OPERATION: ERAS, abdominal myomectomies, insertion of implanted sub derma PRE-OP DIAGNOSIS: Intramural and subserous leiomyoma of uterus D25.1, D25.2, Uterine leiomyoma location: intramural and subserous TISSUE SUBMITTED: Myoma MICROSCOPIC DIAGNOSIS Myoma, excision: Fragments of leiomyoma with hyalinization and associated degenerative and calcific change. AM:alejandra 04/20/19 MICROSCOPIC DESCRIPTION Slides are reviewed. GROSS DESCRIPTION Received in fixative is one container labeled with the patient's name and designated myoma. The specimen consists of 6 variable-sized nodular pieces of tissue weighing in aggregate 116 gm and measures in aggregate 9 x 9 x 5 cm and 1.8 to 6 cm in greatest dimension. Also present in the container is a piece of tissue measuring 2.5 x 1 x 0.2 cm. Sections of these mass(es) reveal starr whorled cut surfaces without areas of hemorrhage, necrosis or cystic degeneration. Also sections reveal focal degenerative changes. Business Initiatives Manager sections are submitted in 6 cassettes as follows: 1 - detached piece of tissue and the smallest nodular mass; 2-3 - intermediate-sized nodular masses; 4-6 - largest nodular mass. /SJ:sp 04/19/19 TC: 1 CPT: 08854
[2019-04-19 05:52] LABS: Internal QC Validated? YES +Cl - CLEAR BKGD; Pregnancy, Urine Negative Negative
[2019-04-19 06:01] LABS: Hematocrit 41.5 % (37-47); Hemoglobin 12.7 g/dL (12.0-15.0); Mean Corp Hgb Conc 30.6 g/dL (32-36); Mean Corpuscular Hgb 26.6 pg (27.0-32.0); Mean Platelet Vol. 11.4 fl (6.2-12.0); POSITIVE MORPHOLOGY YES; Platelet Count 239 K/mm3 (150-450); RBC Distribution Width CV 15.3 % (11.6-14.6); RBC Distribution Width SD 49.5 fl (35.1-43.9); Red Blood Count 4.77 M/mm3 (4.2-5.4); White Blood Count 7.1 K/mm3 (4.4-11.0)
[2019-04-19 06:06] LABS: Scan Indicated on CBC? Y/N YES- FLAGS NOTED
[2019-04-19] MEDS: Acetaminophen 500 MG Tablet 1000 MG PO ×3 (06:13→19:35)
[2019-04-19] MEDS: Gabapentin 600 MG Tablet PO (06:13)
[2019-04-19] MEDS: Celecoxib 200 MG Capsule 400 MG PO (06:14)
[2019-04-19] MEDS: Phenazopyridine 95 MG Tablet 190 MG PO (06:14)
[2019-04-19] MEDS: Scopolamine 1mg/72hr Patch 1 PATCH TRANSDERM. (06:15)
[2019-04-19] MEDS: Magnesium Sulfate 4gm/100mL 4 GM/100 ML IV.SOLN. IV (06:15)
[2019-04-19] MEDS: dexAMETHasone 10 MG/ML Vial 8 MG IV (06:34)
[2019-04-19] MEDS: Enoxaparin 40 MG/0.4 ML Syringe SC (06:34)
[2019-04-19 06:38] LABS: Differential Comment SCANNED
[2019-04-19] MEDS: Lactated Ringers 1,000 ML 40 ML IV (07:07)
[2019-04-19 07:15] LABS: Bedside Glucose 93 mg/dL (70-110)
[2019-04-19] MEDS: Cefazolin 2 GM in 0.9% Normal Saline 100 ML IV (07:27)
--- NOTE | 2019-04-19 07:27 | PCM.OPRPT ---
Problem List (1) Uterine leiomyoma Status: Acute Qualifiers: Comment: laparotomy with myomectomies. nexplanon insertion at surgery. Report of Operation Date of Procedure: 04/19/19 Pre-Operative Diagnosis: fibroids, contraception Post-Operative Diagnosis: same Surgery/Procedure Performed:: Abdominal myomectomies. Nexplanon insertion. Description of Surgical Findings:: multiple pedunculated and an intramural fibroid balance staff inspector: Shannan Israel Type of Anesthesia:: General Special Medications: ancef, surgical snow, kyra, interceed Specimen's removed: fibroids Drains: ram Estimated Blood Loss (mL): 200 Fluids Replaced: crystalloid Description of Procedure: Patient was taken the operating room and placed under general anesthesia. Patient was prepped and draped in the normal sterile fashion in the dorsal supine position. Ram catheter was placed in the bladder and SCDs were on preoperatively. ERAS protocol standards were followed preoperatively. Pfannenstiel skin incision was made with a scalpel and carried through the underlying layer of the fascia with the scalpel fascia was nicked in the midline incision extended laterally. Rectus was dissected off sharply and bluntly superiorly and inferiorly. Peritoneum entered digitally incision stretched laterally. Double-ring retractor was used and the bowel packed away. Multiple pedunculated and one intramural and one subserosal fibroid were seen. Each fibroids were progressively removed by injecting with vasopressin that was diluted and the pedunculated fibroids were removed via electrocautery at the base and then several stitches of 2 oh were used to bring together the myometrium and for hemostasis and then the serosa was closed with 3-0 Monocryl. Surgical's now and Kyra were used to obtain excellent hemostasis over the areas. The subserosal and intramural fibroids were injected with vasopressin and a longitudinal left right incision was made once in the right lower posterior and once on the fundal right portion of the uterus. The subserosal had minimal penetration into the myometrium posteriorly however the intramural fibroid on the right fundus penetrated most of the myometrium. No endometrium was breached. The myoma was difficult to be isolated due to a blurring of the capsules from the growth and shrinkage of the fibroids that occurred likely during and . It was felt that the entire fibroid was removed and the remaining myometrial tissue was reapproximated in multiple layers to maintain integrity and strength to the uterus. Again surgical snow and Kyra were used to obtain hemostasis throughout the layers. Serosa was closed with 3-0 Monocryl baseball stitch. All areas were checked and were intact. Interceed was placed posteriorly and anteriorly over all raw areas where fibroids were removed to reduce the risk for adhesions. Uterus returned to the abdomen and the area was irrigated and watched for hemostasis which was noted to be excellent. All incidents removed from the abdomen laps were removed from the abdomen and the peritoneum was closed with 3-0 Vicryl and fascia closed with #1 strata fix suture. Subcuticular closure with 4-0 Monocryl and Mepilex were applied. Patient tolerated procedure well was taken recovery in stable condition. Grafts/Implants Used: none - Complications none
[2019-04-19] MEDS: Lactated Ringers 1,000 ML 70 ML IV ×2 (09:30→14:48)
[2019-04-19] MEDS: Vasopressin 20 UNITS/ML Vial (09:45)
[2019-04-19] MEDS: Etonogestrel 68 MG IMPLANT SQ (10:11)
[2019-04-19] MEDS: Ondansetron 4 MG/2 ML Vial IV (11:03)
[2019-04-19] MEDS: Ketorolac 30 MG/ML Syringe IV (11:20)
[2019-04-19] MEDS: Citalopram 20 MG Tablet PO (14:49)
[2019-04-19] MEDS: oxyCODONE 5 MG Tablet PO ×2 (15:59→21:10)
[2019-04-19] MEDS: Ketorolac 15 MG/ML Vial 30 MG IV (17:10)
[2019-04-19] MEDS: Docusate Sodium 100 MG Capsule PO (22:47)
[2019-04-20] MEDS: Ketorolac 15 MG/ML Vial 30 MG IV ×4 (00:24→18:37)
[2019-04-20] MEDS: Acetaminophen 500 MG Tablet 1000 MG PO ×4 (00:24→23:45)
[2019-04-20 04:57] VITALS: BP 105/67; PULSE 76; RESP 18; TEMP 36.7; O2SAT 100
[2019-04-20] MEDS: Lactated Ringers 1,000 ML 70 ML IV (05:07)
[2019-04-20 05:37] LABS: Hematocrit 35.6 % (37-47); Hemoglobin 10.8 g/dL (12.0-15.0); Mean Corp Hgb Conc 30.3 g/dL (32-36); Mean Corpuscular Hgb 26.2 pg (27.0-32.0); Mean Corpuscular Volume 86.2 fL (81-99); POSITIVE MORPHOLOGY YES; Platelet Count 210 K/mm3 (150-450); RBC Distribution Width CV 15.9 % (11.6-14.6); RBC Distribution Width SD 50.3 fl (35.1-43.9); Red Blood Count 4.13 M/mm3 (4.2-5.4); White Blood Count 15.1 K/mm3 (4.4-11.0)
[2019-04-20 05:49] LABS: Scan Indicated on CBC? Y/N YES- FLAGS NOTED
[2019-04-20 06:14] LABS: Differential Comment SCANNED
[2019-04-20] MEDS: oxyCODONE 5 MG Tablet PO ×3 (06:37→20:37)
[2019-04-20 07:25] VITALS: O2SAT 97
--- NOTE | 2019-04-20 09:52 | PCM.PN.OB ---
Subjective: No CP, SOB. Pain controlled with meds. Up to bedside. - Physical Exam General: Alert, Oriented x3 Abdomen: Soft, Non-Distended Vital Signs Temp Pulse Resp BP Pulse Ox 98.1 F 76 18 105/67 97 04/20/19 04:57 04/20/19 04:57 04/20/19 04:57 04/20/19 04:57 04/20/19 07:25 Oxygen Flow Rate (L/min) 6 Oxygen Delivery Method Room Air Weight: 173 lb 4.533 oz Body Mass Index (BMI) 27.1 Intake and Output for Last 24 Hours 04/18/19 04/19/19 04/20/19 23:59 23:59 23:59 Intake Total 2116.78 / 2116.78 1425 / 1425 Output Total 1365 / 1365 1500 / 1500 Balance 751.78 / 751.78 -75 / -75 Laboratory Tests Past 24 Hrs 04/20/19 05:18 WBC 15.1 H RBC 4.13 L Hgb 10.8 L Hct 35.6 L MCV 86.2 MCH 26.2 L MCHC 30.3 L RDW Std Deviation 50.3 H RDW Coeff of Jody 15.9 H Plt Count 210 MPV 12.0 Differential Comment SCANNED Medical Necessity - Tobacco Use Smoking Status: Current every day smoker Tobacco Use: Cigarettes Assessment/Plan All Active Problems (Last Reviewed 04/04/19 @ 11:45 by Ashli Rivera) Uterine leiomyoma (Acute) Abnormal ultrasonic finding on screening of mother, antepartum (Resolved) Active labor at term (Resolved) Anemia affecting (Resolved) screening encounter (Resolved) Bleeding in early (Resolved) Cellulitis of left external ear (Resolved) Depression affecting , antepartum (Resolved) Pain in female pelvis (Resolved) (Resolved) Sinusitis, acute frontal (Resolved) Supervision of high risk , antepartum (Resolved) Tobacco use affecting in first trimester, antepartum (Resolved) Uterine fibroid in (Resolved) Postop day #1 myomectomy routine care, ambulate, po diet,
[2019-04-20 10:08] VITALS: BP 108/63; PULSE 65; RESP 16; TEMP 37.3; O2SAT 100
[2019-04-20] MEDS: Citalopram 20 MG Tablet PO (10:23)
[2019-04-20] MEDS: Docusate Sodium 100 MG Capsule PO ×2 (10:23→20:37)
--- NOTE | 2019-04-20 12:10 | CASEMGMT ---
RN AMANDO BLACKING WHEEL TENDER CM to room to meet with patient for initial transition planning/care coordination assessment. RN AMANDO introduced self and role at [facility]. Pt voices understanding and consents to assessment at this time. Pt resting in bed in no distress at this time. Pt is A/O at this time and answers all questions appropriately. Care providers, pharmacy, and demographics verified/updated at this time. PCP: No PCP. Offered/accepted list of local PCP's who are accepting new patients and who are in network with [employer]. Pt voices appreciation. Specialists: Almaz Damon Pharmacy: [facility] Retail Insurance: [employer] RO[employer] Prescription Benefit: Yes Living Will/HPOA: States does not have LW or HCPOA and is interested in more information and would like to talk to SW. KENIA Bolaños, made aware. LNOK: Mother. Living Arrangements: Lives in a 2nd-floor apartment. Has a 9-month-old daughter who lives with her. Independent. Transportation: Pt states drives self and states no transportation concerns at this time. States her aunt or grandma will drive her home @ discharge. DME: Denies using any DME and denies needs. HHC/SNF: No history of either, denies needs, and no needs identified. Pt wishes to return home and states has no concerns with going home at time of discharge. CM to follow for any further discharge planning/needs. Pt voices no further concerns/needs at this time. Advised pt to ask for CM if any further questions/concerns/needs arise. Voices understanding. PLAN: Home w/family support and discharge plans in place. Micky GRESHAM RN, CM
--- NOTE | 2019-04-20 14:35 | CASEMGMT ---
Social Work SW received referral from [facility], that pt is interested in Advance directives. SW entered room and introduced self and explained reason for visit. Pt stating she is not up to talking about AD right now. Rack card provided and pt informed she can call SW to set up appointment as outpt. SW offered for another visit tomorrow if pt is feeling better. Pt declines stating the written information is all she needs at this time. PRANAY Avery
[2019-04-20 15:12] VITALS: BP 111/65; PULSE 66; RESP 14; TEMP 36.9; O2SAT 99
[2019-04-20 20:27] VITALS: BP 110/68; PULSE 85; RESP 16; TEMP 36.9; O2SAT 99
[2019-04-20] MEDS: Magnesium Oxide 400 MG Tablet PO (23:49)
[2019-04-21 02:27] VITALS: BP 103/66; PULSE 74; RESP 14; TEMP 36.9; O2SAT 99
[2019-04-21] MEDS: oxyCODONE 5 MG Tablet PO ×2 (05:29→11:00)
[2019-04-21] MEDS: Acetaminophen 500 MG Tablet 1000 MG PO ×2 (05:29→10:58)
[2019-04-21 07:02] VITALS: O2SAT 98
--- NOTE | 2019-04-21 07:19 | PCM.PN.OB ---
Subjective: doing well no compalints - Physical Exam General: Alert, Oriented x3 Abdomen: Soft, Non Tender Vital Signs Temp Pulse Resp BP Pulse Ox 98.5 F 74 14 103/66 99 04/21/19 02:27 04/21/19 02:27 04/21/19 02:27 04/21/19 02:27 04/21/19 02:27 Oxygen Flow Rate (L/min) 6 Oxygen Delivery Method Room Air Weight: 173 lb 4.533 oz Body Mass Index (BMI) 27.1 Intake and Output for Last 24 Hours 04/19/19 04/20/19 04/21/19 23:59 23:59 23:59 Intake Total 2116.78 / 2116.78 3825 / 3825 200 / 200 Output Total 1365 / 1365 2100 / 2100 175 / 175 Balance 751.78 / 751.78 1725 / 1725 Medical Necessity - Tobacco Use Smoking Status: Current every day smoker Tobacco Use: Cigarettes Assessment/Plan All Active Problems (Last Reviewed 04/04/19 @ 11:45 by Ashli Rivera) Uterine leiomyoma (Acute) Abnormal ultrasonic finding on screening of mother, antepartum (Resolved) Active labor at term (Resolved) Anemia affecting (Resolved) screening encounter (Resolved) Bleeding in early (Resolved) Cellulitis of left external ear (Resolved) Depression affecting , antepartum (Resolved) Pain in female pelvis (Resolved) (Resolved) Sinusitis, acute frontal (Resolved) Supervision of high risk , antepartum (Resolved) Tobacco use affecting in first trimester, antepartum (Resolved) Uterine fibroid in (Resolved) pod 2 s/p myomectomies [place] home routine care
--- NOTE | 2019-04-21 07:20 | DCINST_ITS ---
Discharge Diet: No Restrictions Discharge Activity: Return to Normal Activity, May Not Drive - while taking narcotic pain medications. May resume sexual activity in: 6-8 weeks Call your doctor if your incision/area has: Continuous Slow Oozing, Sudden Increased Bleeding, Increased Pain/ Swelling, Increased Redness, Foul Smelling Discharge Call your doctor if you observe: Fever of 101 or Higher Allergies/Adverse Reactions: Allergies No Known Allergies Allergy (Verified 04/12/19 09:52) Medications to take at Discharge naproxen 500 mg tablet 500 mg PO PRN PRN 02/07/19 oxycodone-acetaminophen 5 mg-325 mg tablet 1 tab PO Q4H PRN #20 tab 02/07/19 Citalopram Hydrobromide [Citalopram HBr] 20 mg PO QDAY 04/12/19 Naproxen [Naprosyn] 250 - 500 mg PO Q8H PRN PRN #30 tab 04/19/19 Oxycodone HCl/Acetaminophen [Percocet 5-325] 1 - 2 tab PO Q4H PRN PRN 7 Days #28 tab 04/19/19 The following prescriptions were given: Naproxen [Naprosyn] 250 - 500 mg PO Q8H PRN PRN #30 tab PRN Reason: MILD PAIN Transmission Status: Received by [facility] Oxycodone HCl/Acetaminophen [Percocet 5-325] 1 - 2 tab PO Q4H PRN PRN 7 Days #28 tab PRN Reason: Moderate-Severe pain Transmission Status: Received by [facility] Primary Care Physician: Care Physician,No Primary [Primary Care Provider] - Test Results: Test results from this visit will be discussed in further detail at your follow- up appointment, if applicable. Please Follow Up With: Jessica Muse MD - [phone] When: in 2 weeks
[2019-04-21] MEDS: Docusate Sodium 100 MG Capsule PO (09:06)
[2019-04-21] MEDS: Citalopram 20 MG Tablet PO (09:07)
[2019-04-21 09:11] VITALS: BP 145/68; PULSE 74; RESP 16; TEMP 37; O2SAT 100
== END 2019-04-21 11:25 | disposition home or self-care (01) | DRG 519 ==
LOC: ACINP 05:25 → MS3 08:06
PROVIDERS: Anesthesiology; Admitting Provider Obstetrics & Gynecology; Referring Provider Obstetrics & Gynecology; Visit Provider Obstetrics & Gynecology
PROC: 0UT90ZZ Resection of Uterus, Open Approach (ICD-10-PCS; CPT 58150; principal; 2019-04-19 07:10)
DX: D25.1 Intramural leiomyoma of uterus (principal); D25.2 Subserosal leiomyoma of uterus; F17.210 Nicotine dependence, cigarettes, uncomplicated; Z30.017 Encounter for initial prescription of implantable subdermal contraceptive
CPT/HCPCS: 36415; 81025; 82962; 85027; 86850; 86900; 86901; 88307; 99406; J7120; J2405

== ENCOUNTER → 2021-01-27 11:56 | Outpatient (CLI) | payer MEDICAID, SELFPAY ==
[2021-01-13 09:43] VITALS: BMI 24.7
--- NOTE | 2021-01-27 11:58 | US_ITS ---
STUDY: ULTRASOUND OF THE FEMALE PELVIS - COMPLETE REASON FOR EXAM: Female, 35 years old. heavy menses LMP: 01/10/2021 TECHNIQUE: Transabdominal and Transvaginal TECHNICAL QUALITY: Adequate. COMPARISON: 02/08/2019 FINDINGS: The uterus is anteverted and is in a midline position. The uterus measures 8.6 x 5.9 x 4.0 cm. Normal uterine cervix. The endometrium measures 7 mm in thickness, and is hypoechoic. There is no demonstrated endometrial mass. 3 cm hypoechoic mass in the fundus the uterus consistent with an intramural fibroid. I.U.D. - The patient does not have an I.U.D. The right ovary is visualized. The right ovary measures 2.5 x 3.0 x 2.1 cm. There is no right ovarian cyst or ovarian mass. There is no visualized right adnexal mass or complex lesion. There is normal arterial and normal venous vascularity. The left ovary is non-visualized.. Within the left adnexa there is a 5.5 cm heterogeneous isoechoic mass felt to represent a pedunculated subserosal fibroid. There is normal arterial and normal venous vascularity. There is no fluid in the cul-de-sac. The pre void volume of the bladder was ml. The post void volume of the bladder was ml. Polycystic ovary disease: No. US/Pelvic (Non ) IMPRESSION: Suspect multiple fibroids including a 5.5 cm of pedunculated subserosal fibroid extending to the left adnexa. Alternatively this could represent an ovarian mass. MRI may be useful. Electronically Signed: Silvestre Colindres MD at 7:03 EDT Tel , Service support ,
--- NOTE | 2021-01-27 11:58 | US_ITS ---
STUDY: ULTRASOUND OF THE FEMALE PELVIS - COMPLETE REASON FOR EXAM: Female, 35 years old. heavy menses LMP: 01/10/2021 TECHNIQUE: Transabdominal and Transvaginal TECHNICAL QUALITY: Adequate. COMPARISON: 02/08/2019 FINDINGS: The uterus is anteverted and is in a midline position. The uterus measures 8.6 x 5.9 x 4.0 cm. Normal uterine cervix. The endometrium measures 7 mm in thickness, and is hypoechoic. There is no demonstrated endometrial mass. 3 cm hypoechoic mass in the fundus the uterus consistent with an intramural fibroid. I.U.D. - The patient does not have an I.U.D. The right ovary is visualized. The right ovary measures 2.5 x 3.0 x 2.1 cm. There is no right ovarian cyst or ovarian mass. There is no visualized right adnexal mass or complex lesion. There is normal arterial and normal venous vascularity. The left ovary is non-visualized.. Within the left adnexa there is a 5.5 cm heterogeneous isoechoic mass felt to represent a pedunculated subserosal fibroid. There is normal arterial and normal venous vascularity. There is no fluid in the cul-de-sac. The pre void volume of the bladder was ml. The post void volume of the bladder was ml. Polycystic ovary disease: No. US/Transvaginal Non- IMPRESSION: Suspect multiple fibroids including a 5.5 cm of pedunculated subserosal fibroid extending to the left adnexa. Alternatively this could represent an ovarian mass. MRI may be useful. Electronically Signed: Silvestre Colindres MD at 7:03 EDT Tel , Service support ,
== END ==
PROVIDERS: Referring Provider Nurse Practitioner Women's Health; Visit Provider Nurse Practitioner Women's Health
DX: N92.0 Excessive and frequent menstruation with regular cycle (principal); D25.0 Submucous leiomyoma of uterus; D25.1 Intramural leiomyoma of uterus; D25.2 Subserosal leiomyoma of uterus
CPT/HCPCS: 76830; 76856

== ENCOUNTER → 2022-06-25 | Outpatient (CLI) | payer MEDICAID, SELFPAY ==
--- NOTE | 2022-06-25 11:55 | US_ITS ---
STUDY: ULTRASOUND OF THE FEMALE PELVIS - COMPLETE REASON FOR EXAM: Female, 37 years old. History of fibroids. History of myomectomy in 2019. History of Nexaplon in arm, 2019. LMP: June 12, 2022 TECHNIQUE: Transabdominal and Transvaginal TECHNICAL QUALITY: Adequate. COMPARISON: January 27, 2021. FINDINGS: The uterus is anteverted and is in a midline position. The uterus measures 7.8 x 5.6 x 4.4 cm. Normal uterine cervix. The endometrium measures 6.4 mm in thickness, and is hyperechoic. There is no demonstrated endometrial mass. There is no demonstrated myometrial mass. Multiple calcifications are seen within the myometrium. The largest measures 2 mm. I.U.D. - The patient does not have an I.U.D. The right ovary is visualized. The right ovary measures 2.5 x 4.1 x 1.2 cm. There are multiple follicles of the right ovary with a 0.7 x 0.5 cm dominant follicle. There is no visualized right adnexal mass or complex lesion. There is normal arterial and normal venous vascularity. The left ovary is visualized. The left ovary measures 3.3 x 2.5 x 1.9 cm. There are multiple follicles of the left ovary with a 1.2 x 1.1 x 0.9 cm dominant follicle. There is no visualized left adnexal mass or complex lesion. There is normal arterial and normal venous vascularity. There is no fluid in the cul-de-sac. The pre void volume of the bladder was 271 ml. The urinary bladder is grossly normal. Polycystic ovary disease: No. US/Pelvic (Non ) IMPRESSION: 1. Heterogeneous myometrium with focal calcifications. No distinct fibroid is seen. The uterus is otherwise unremarkable. 2. Normal ovaries. 3. No major interval change. Electronically Signed: Meir Villegas DO at 18:08 EDT ,
== END | disposition home or self-care (01) ==
LOC: US 11:54
PROVIDERS: Visit Provider Obstetrics & Gynecology
DX: Z86.018 Personal history of other benign neoplasm (principal)
CPT/HCPCS: 76830; 76856

== ENCOUNTER → 2023-06-20 | Outpatient (CLI) | payer OTHER, SELFPAY ==
[2023-06-23 09:08] LABS: HPV APTIMA, High Risk Negative (Negative)
== END | disposition home or self-care (01) ==
LOC: LABSPEC 11:37
PROVIDERS: Referring Provider Nurse Practitioner Women's Health; Visit Provider Nurse Practitioner Women's Health
DX: Z12.4 Encounter for screening for malignant neoplasm of cervix (principal)
CPT/HCPCS: 87624; 88175; G0145

== ENCOUNTER → 2023-07-06 | Outpatient (CLI) | payer OTHER, SELFPAY ==
--- NOTE | 2023-07-06 10:51 | BI_ITS ---
MAMMOGRAPHY - BILATERAL SCREENING REASON FOR EXAM: Female, 38 years old. Routine annual screening examination. PERTINENT HISTORY: Non-contributory. TECHNIQUE: Digital bilateral breast guy (3D mammographic acquisition) in the CC and MLO projections. 2-D mediolateral oblique (MLO) and craniocaudad (CC) views of both breasts were obtained. CAD: Full Field Digital Mammography with Computer Added Detection was performed. COMPARISON: None. Baseline examination. FINDINGS: Breast Composition: The breasts are heterogeneously dense, which may obscure small masses. There are no dominant masses or suspicious calcifications. No other significant abnormalities are identified. BI/SCRN MAMM (CAD)W/GUY BILAT IMPRESSION: Negative screening mammogram. Yearly followup mammogram recommended. (A) ASSESSMENT CATEGORY: BIRADS Category 1: Negative. A letter regarding these results will be sent to the patient by the facility within 30 days. Approximately 10% of breast cancers are not detected by mammography. A normal mammogram should not delay biopsy of a clinically suspicious abnormality. [id number] Electronically Signed: Lauri Ty MD at 12:32 EST ,
== END | disposition home or self-care (01) ==
LOC: OPBI 10:49
PROVIDERS: Referring Provider Nurse Practitioner Women's Health; Visit Provider Nurse Practitioner Women's Health
DX: Z12.31 Encounter for screening mammogram for malignant neoplasm of breast (principal)
CPT/HCPCS: 77063; 77067

== ENCOUNTER → 2023-07-08 | Outpatient (CLI) | payer OTHER, SELFPAY ==
--- NOTE | 2023-07-08 16:32 | US_ITS ---
STUDY: ULTRASOUND OF THE FEMALE PELVIS - COMPLETE REASON FOR EXAM: Female, 38 years old. bleeding, pain LMP: 06/25/2023 TECHNIQUE: Transabdominal and Transvaginal TECHNICAL QUALITY: Adequate. COMPARISON: 06/25/2022 FINDINGS: The uterus is anteverted and is in a midline position. The uterus measures 8.3 x 5.5 x 4.4 cm. Normal uterine cervix. The endometrium measures 6 mm in thickness, and is hypoechoic. There is no demonstrated endometrial mass. There is no demonstrated myometrial mass. I.U.D. - The patient does not have an I.U.D. The right ovary is visualized. The right ovary measures 1.8 x 1.9 x 1.5 cm. There is no right ovarian cyst or ovarian mass. There is no visualized right adnexal mass or complex lesion. There is normal arterial and normal venous vascularity. The left ovary is visualized. The left ovary measures 2.2 x 1.6 x 1.3 cm. There is no left ovarian cyst or ovarian mass. There is no visualized left adnexal mass or complex lesion. There is normal arterial and normal venous vascularity. There is no fluid in the cul-de-sac. The pre void volume of the bladder was ml. The post void volume of the bladder was ml. Polycystic ovary disease: No. US/Transvaginal Non- IMPRESSION: Normal female pelvis. Electronically Signed: Silvestre Colindres MD at 19:29 EST ,
[2023-07-08 17:18] LABS: Absolute Lymphocyte Count 2.38 X10^3/uL (0.83-4.51); Absolute Neutrophil Count 4.1 X10^3/uL (2.0-7.7); Basophil# 0.05 X10^3/uL; Basophil% 0.7 % (0-1); Eosinophil# 0.09 X10^3/uL; Eosinophils% 1.2 % (0-5); Hematocrit 39.2 % (37-47); Hemoglobin 12.4 g/dL (12.0-15.0); Lymphocyte # 2.38 X10^3/ul (0.83-4.51); Mean Corp Hgb Conc 31.6 g/dL (32-36); Mean Corpuscular Volume 88.5 fL (81-99); Mean Platelet Vol. 11.3 fl (6.2-12.0); Monocyte# 0.62 X10^3/uL; Monocyte% 8.6 % (0-10); NRBC Flagged by Analyzer 0 % (0-5); Neutrophil # 4.06 X10^3/uL (2.7-7.7); Neutrophil % 56.2 % (47-70); POSITIVE MORPHOLOGY YES; Platelet Count 268 K/mm3 (150-450); RBC Distribution Width CV 13.7 % (11.6-14.6); RBC Distribution Width SD 44.9 fl (35.1-43.9); Red Blood Count 4.43 M/mm3 (4.2-5.4); White Blood Count 7.2 K/mm3 (4.4-11.0)
[2023-07-08 17:29] LABS: Differential Indicated SCAN CRITERIA MET
[2023-07-08 17:44] LABS: Thyroid Stim Hormone (TSH) 1.36 uIU/mL (0.358-3.74)
== END | disposition home or self-care (01) ==
PROVIDERS: Referring Provider Nurse Practitioner Women's Health; Visit Provider Nurse Practitioner Women's Health
DX: Z13.29 Encounter for screening for other suspected endocrine disorder (principal); N92.0 Excessive and frequent menstruation with regular cycle; R10.2 Pelvic and perineal pain
CPT/HCPCS: 36415; 76830; 76856; 84443; 85025

== ENCOUNTER → 2025-06-06 | Outpatient (CLI) | payer OTHER, SELFPAY ==
[2025-06-06 12:22] LABS: Hematocrit 39.8 % (37-47); Hemoglobin 12.6 g/dL (12.0-15.0); Immature Granulocytes Count 0.020 X10^3/uL (0.0-0.0); Mean Corp Hgb Conc 31.7 g/dL (32-36); Mean Corpuscular Volume 86.3 fL (81-99); Mean Platelet Vol. 11.3 fl (6.2-12.0); NRBC Flagged by Analyzer 0 % (0-5); Platelet Count 289 K/mm3 (150-450); RBC Distribution Width CV 14.4 % (11.6-14.6); RBC Distribution Width SD 45.5 fl (35.1-43.9); Red Blood Count 4.61 M/mm3 (4.2-5.4); White Blood Count 5.6 K/mm3 (4.4-11.0)
[2025-06-06 13:16] LABS: CORTISOL AM 11.40 ug/dL (6.02-18.40); Cholesterol 183 mg/dL (<=200); Ferritin 43 ng/mL (22-378); Low Density Lipoprotein Calc. 102 mg/dL; Magnesium 1.9 mg/dL (1.5-2.2); Triglycerides 103 mg/dL; Very Low Density Lipoprotein 21 mg/dL (5-40); Vitamin B12 795 pg/mL (180-914); Vitamin D,25 Hydroxy 28.1 ng/mL (30-100); cholesterol:hdl ratio screen 3.01
[2025-06-06 13:47] LABS: AST(SGOT) 21 U/L (<=31); Alanine Aminotransfer ALT/SGPT 17 U/L (<=34); Albumin, Serum 4.1 g/dL (3.5-5.0); Alkaline Phosphatase 46 U/L (35-104); Anion Gap 7 (5-15); BUN 14 mg/dL (4-19); BUN/Creat Ratio 18.1 RATIO (10-20); Calcium,Total 9.1 mg/dL (7.6-11.0); Carbon Dioxide 26.4 mmol/L (21.0-32.0); Chloride 103 mmol/L (98-108); Globulin 2.6 g/dL (2.2-4.2); Glucose 96 mg/dL (70-99); Potassium 4.4 mmol/L (3.3-5.1)
== END | disposition home or self-care (01) ==
PROVIDERS: PCP Family Medicine; Visit Provider Family Medicine
DX: R53.83 Other fatigue (principal); Z13.6 Encounter for screening for cardiovascular disorders
CPT/HCPCS: 36415; 80053; 80061; 82306; 82533; 82607; 82728; 83036; 83735; 84443; 85025